=== PATIENT | male | born 1960 | race Caucasian/White ===

== ENCOUNTER 2016-11-27 15:45 | Emergency (ER) | payer BC ==
[2016-11-27] MEDS ORDERED: Tetan/Diph/Pertus SYR(Tdap)* 0.5 ML SYR(BOOSTRIX) use SYR IM ONE (16:49)
--- NOTE | 2016-11-27 17:53 | RAD ---
INDICATION: Fall one day earlier. Concern for subcutaneous gravel COMPARISON: None. TECHNIQUE: Routine views of the facial bones were obtained. REPORT: There are no interruptions of the orbital margins bilaterally. The maxillary and bilateral zygomatic bones are intact. No air-fluid levels evident in the paranasal sinuses. No subcutaneous foreign bodies are identified. IMPRESSION: No radiographically apparent acute abnormality including subcutaneous foreign bodies. If the patient's symptoms persist, follow-up imaging is recommended.
--- NOTE | 2016-11-27 17:57 | RAD ---
INDICATION: Bilateral hand pain one day after a fall COMPARISON: None. TECHNIQUE: 4 views of each hand were obtained. FINDINGS: There is a minimally displaced comminuted fracture at the proximal metaphysis of the left index finger proximal phalanx. On the lateral view there is approximately 30 degrees of palmar angulation. Remaining visualized bones of the bilateral hands are otherwise intact and appropriately aligned. No subcutaneous foreign bodies are identified. IMPRESSION: Fracture of the left index finger proximal phalanx as described above.
[2016-11-27 18:08] VITALS: BP 129/72
[2016-11-27] MEDS ORDERED: Lidocaine 2% PF * 5 ML VIAL INJ ONE (18:34)
[2016-11-27] MEDS ORDERED: Lidocaine 2% PF * 5 ML VIAL ONE (18:36)
--- NOTE | 2016-11-27 19:13 | RAD ---
INDICATION: Post reduction TECHNIQUE: 3 views of the left index finger were obtained at 1851 hours. FINDINGS: Again seen is a comminuted fracture at the proximal metaphysis of the left index finger proximal phalanx. There has been interval reduction in the degree of palmar angulation relative to the x-ray timed at 1706 hours. IMPRESSION: INTERVAL REDUCTION IN THE DEGREE OF PALMAR ANGULATION AT THE LEFT INDEX FINGER PROXIMAL PHALANX FRACTURE.
--- NOTE | 2016-11-27 19:36 | UC ---
Hand/Wrist HPI - HPI Summary HPI Summary: FALL LAST NIGHT ONTO GRAVEL. SCRAPED HANDS AND FACE. LEFT HAND SWOLLEN WITH WEDDING BAND ON RING FINGER. NO LOC. NO NECK PAIN. NO SOB. - History Of Current Complaint Chief Complaint: UCUpperExtremity Stated Complaint: HAND INJURY Time Seen by Provider: 11/27/16 15:47 Hx Obtained From: Patient Onset/Duration: Sudden Onset, Lasting Hours Severity Initially: Mild Severity Currently: Moderate Character Of Pain: Dull, Aching Aggravating Factor(s): Flexion, Extension Alleviating Factor(s): Nothing Associated Signs And Symptoms: Positive: Negative - Allergies/Home Medications Allergies/Adverse Reactions: Allergies Allergy/AdvReac Type Severity Reaction Status Date / Time No Known Allergies Allergy Verified 11/27/16 15:58 Home Medications: Home Medications Acetaminophen [Tylenol] 650 mg PO 11/27/16 [History] Citalopram TAB* [CeleXA TAB*] 20 mg PO DAILY 11/27/16 [History Confirmed ] Fexofenadine (NF) [Coby (NF)] 60 mg PO 11/27/16 [History] PMH/Surg Hx/FS Hx/Imm Hx Previously Healthy: Yes - Surgical History Surgical History: Yes Surgery Procedure, Year, and Place: sinus surgery and deviated septum repair. - Family History Known Family History: Negative: Blood Disorder - Social History Occupation: Employed Full-time Lives: With Family Alcohol Use: Occasionally Substance Use Type: None Smoking Status (MU): Never Smoked Tobacco Review of Systems Constitutional: Negative Skin: Bruising, Other - ABRASION BILATERAL HANDS; FACIAL ABRASIONS Eyes: Negative ENT: Negative Respiratory: Negative Cardiovascular: Negative Gastrointestinal: Negative Genitourinary: Negative Motor: Negative Neurovascular: Negative Musculoskeletal: Edema Neurological: Negative Psychological: Negative Is Patient Immunocompromised?: No All Other Systems Reviewed And Are Negative: Yes Physical Exam Triage Information Reviewed: Yes Appearance: Well-Appearing, Well-Nourished, Pain Distress - MILD Vital Signs: Initial Vital Signs Temp 100.1 F 11/27/16 15:53 Pulse 70 11/27/16 15:53 Resp 18 11/27/16 15:53 BP 139/69 11/27/16 15:53 Pulse Ox 97 11/27/16 15:53 Vital Signs Reviewed: Yes Eye Exam: Normal ENT Exam: Normal ENT: Positive: Normal ENT inspection, Hearing grossly normal, Pharynx normal, TMs normal Dental Exam: Normal Neck exam: Normal Neck: Positive: Supple, Nontender, No Lymphadenopathy Respiratory Exam: Normal Respiratory: Positive: Chest non-tender, Lungs clear, Normal breath sounds, No respiratory distress Cardiovascular Exam: Normal Cardiovascular: Positive: RRR, No Murmur, Pulses Normal Abdominal Exam: Normal Musculoskeletal: Positive: Strength Limited @ - LEFT INDEX FINGER FLEXION, ROM Limited @ - LEFT HAND, Edema @ - LEFT HAND Neurological Exam: Normal Psychological Exam: Normal Skin: Positive: rashes - ABRASION RIGHT/LEFT HAND FACIAL, Other Procedures - Procedure Summary Procedure Summary: RING REMOVAL SILVER WEDDING BAND REMOVED FROM LEFT RIGHT FINGER BY [id number] USING RING CUTTING TOOLS. - Splinting Location: LEFT HAND Hand-Made Type: orthoglass Splint: ORTHO GLASS TO PALMAR HAND WITH FINGER SPLINT TO 2ND DORSAL FINGER Pre-Proc Neuro Vasc Exam: normal Post-Proc Neuro Vasc Exam: normal Diagnostics - Radiology No standard instances Radiology Interpretation Completed By: ED Physician, Radiologist Hand/Wrist Course/Dx - Course Course Of Treatment: PATEINT AGREED TO FOLLOW UP FIRST THING ON TUESDAY WITH [facility] ORTHOPEDIC PHYSICIAN. PATIENT GIVEN CDS OF RADIOLOGY FINDINGS. - Differential Dx/Diagnosis Differential Diagnosis/HQI/PQRI: Abrasion, Fracture, Sprain, Strain Provider Diagnoses: ABRASIONS TO FACE AND BILATERAL HANDS; CLOSED COMMINUTED FRACTURE OF LEFT SECOND PROXIMAL PHALANX, WITH INTERVAL REDUCTION OF ANGULATION ; CLOSED MINIMALLY DISPLACED FRACTURE OF ULNAR CORNER OF PROXIMAL PHALANX OF LEFT FOURTH FINGER. RING REMOVAL OF LEFT FOURTH FINGER. - Physician Notifications Discussed Patient Care With: Ludy Seaman - ADVISED TO DIGITAL BLOCK WITH CLOSED REDUCTION AND SPLINT. F/O ORTHO TUESDAY Time Discussed With Above Provider: 18:30 Instructed by Provider To: Have Pt Call For Appt. Discharge - Discharge Plan Condition: Stable Disposition: HOME Patient Education Materials: Finger Fracture (ED) Referrals: Ludy Seaman MD [Medical Doctor] - No Primary Care Phys,NOPCP [Primary Care Provider] - Additional Instructions: PLEASE CONTACT YOUR ORTHOPEDIC DOCTOR FIRST THING ON TUESDAY MORNING
== END 2016-11-27 19:38 | disposition home or self-care (01) ==
LOC: UCEAST 15:45
DX: S62.611A Displaced fracture of proximal phalanx of left index finger, initial encounter for closed fracture (principal); W19.XXXA Unspecified fall, initial encounter; Y92.9 Unspecified place or not applicable; S00.81XA Abrasion of other part of head, initial encounter; S60.519A Abrasion of unspecified hand, initial encounter; S62.615A Displaced fracture of proximal phalanx of left ring finger, initial encounter for closed fracture
CPT/HCPCS: 70150; 73140; 90471; 90715; 99201; G0463